=== PATIENT | female | born 1995 | race African-American/Black ===

== ENCOUNTER 2019-04-05 12:14 | Emergency (ER) | payer OTHER, MEDICAID ==
[~2019-04-05] VITALS: Ht 172.7 cm; Wt 117.9 kg
[2019-04-05 12:27] LABS: URINE BILIRUBIN NEGATIVE (Negative); URINE BLOOD NEGATIVE (Negative); URINE CLARITY SL CLOUDY; URINE COLOR YELLOW; URINE GLUCOSE-RANDOM NEGATIVE (Negative); URINE KETONES TRACE (Negative); URINE NITRITE-REFLEX NEGATIVE (Negative); URINE PROTEIN NEGATIVE (Negative); URINE UROBILINOGEN 0.2 E.U./dl (0.2-1.0)
[2019-04-05 12:38] LABS: URINE LEUKOCYTES-REFLEX 3+ (Negative)
[2019-04-05 12:39] LABS: SQUAMOUS >10 Many /LPF (0-3)
[2019-04-05 12:40] LABS: CASTS None Seen /LPF (None Seen); MUCUS 0-3 Light strn/LPF (None Seen); URINE RBC 0-2 Rare /HPF (0-2)
[2019-04-05 12:41] LABS: CRYSTALS None Seen /LPF (None Seen)
[2019-04-05 12:41] LABS: ABSOLUTE BASOPHILS 0.1 thou/uL (0.0-0.2); ABSOLUTE EOSINOPHILS 0.2 thou/uL (0.0-0.7); ABSOLUTE LYMPHOCYTES 2.6 thou/uL (0.8-5.3); ABSOLUTE MONOCYTES 0.6 thou/uL (0.0-1.2); ABSOLUTE NEUTROPHILS 6.9 thou/uL (1.6-8.1); BASOPHILS 0.8 %; HEMOGLOBIN 12.8 gm/dL (12.0-15.0); LYMPHOCYTES 25.2 %; MCH 28.5 pg (26.0-34.0); MCHC 34.6 g/dL (28.0-37.0); MCV 82.3 fL (80.0-100.0); MONOCYTES 6.1 %; MPV 10.5 fl. (7.2-11.1); NUCLEATED RBCS 0 /100WBC; PLATELET COUNT* 264 thou/uL (150-400); POLYS 65.9 %; WBC 10.5 thou/uL (4.0-11.0)
[2019-04-05 12:59] LABS: CALCIUM 9.2 mg/dL (8.5-10.1); CREATININE 0.9 mg/dL (0.6-1.3)
[2019-04-05 13:03] LABS: ALBUMIN 3.6 g/dL (3.4-5.0); TOTAL BILIRUBIN 0.4 mg/dL (<0.1-1.0); TOTAL PROTEIN 8.5 g/dL (6.4-8.2)
[2019-04-05] MEDS ORDERED: MACROBID 100 M100 M2 PO (13:22)
[2019-04-05] MEDS ORDERED: PYRIDIUM100 M1 PO (13:22)
[2019-04-05 14:09] VITALS: BP 137/77
== END 2019-04-05 14:11 ==
LOC: M.ERS 12:14
PROVIDERS: Nurse Practitioner Family
DX: Z32.02 Encounter for pregnancy test, result negative (principal); N39.0 Urinary tract infection, site not specified; N89.8 Other specified noninflammatory disorders of vagina; N93.9 Abnormal uterine and vaginal bleeding, unspecified; M41.9 Scoliosis, unspecified